=== PATIENT | female | born 1970 | race Caucasian/White ===

== ENCOUNTER 2018-03-28 09:03 | Inpatient (IN) | payer OTHER ==
[~2018-03-28] VITALS: Ht 154.9 cm; Wt 89.8 kg
[~2018-03-28 09:03] MED LIST: ABILIFY30 MG PO; EFFEXOR XR75 MG PO
[2018-04-03] MEDS ORDERED: GABAPENTIN800 MG PO (07:09)
[2018-04-03] MEDS ORDERED: IBUPROFEN800 MG PO (07:09)
== END 2018-04-03 12:36 | DRG 743 ==
LOC: O/R 03-31 05:26 → SURH 03-31 09:15 → OB/GYN 03-31 10:39 → CIR.AMB 03-31 14:11 → EDSTATUS 03-31 14:13 → SURH 03-31 14:13 → OB/GYN 04-03 12:36
PROVIDERS: Obstetrics & Gynecology
PROC: 0UT70ZZ Resection of Bilateral Fallopian Tubes, Open Approach (ICD-10-PCS; 2018-03-31)
PROC: 0UT90ZZ Resection of Uterus, Open Approach (ICD-10-PCS; principal; 2018-03-31 09:15)
DX: N87.1 Moderate cervical dysplasia (principal); N72 Inflammatory disease of cervix uteri; E66.8 Other obesity

== ENCOUNTER → 2018-12-18 | Emergency (ER) | payer OTHER ==
[~2018-12-18] VITALS: Ht 154.9 cm; Wt 89.8 kg
[~2018-12-18] MED LIST changes: +EFFEXOR XR37.5 MG; +GABAPENTIN800 MG PO; +IBUPROFEN800 MG PO
== END | disposition home or self-care (01) ==
LOC: ER 14:52
DX: K57.92 Diverticulitis of intestine, part unspecified, without perforation or abscess without bleeding (principal); R10.2 Pelvic and perineal pain